=== PATIENT | female | born 1975 | race Two or more races ===

== ENCOUNTER → 2025-03-15 | Emergency (ER) | payer OTHER ==
[~2025-03-15] VITALS: Ht 160 cm; Wt 61.2 kg
[~2025-03-15] MED LIST: SYNTHROID75 MCG PO
== END | disposition left against medical advice (07) ==
LOC: ER 16:03
DX: A49.3 Mycoplasma infection, unspecified site (principal); D72.819 Decreased white blood cell count, unspecified; D69.6 Thrombocytopenia, unspecified